=== PATIENT | male | born 1980 | race Two or more races ===

== ENCOUNTER → 2024-08-21 12:52 | Outpatient (BNVA) | payer OTHER, SELFPAY | PROVIDERS: Visit Provider Physician Assistant Medical | DX: S61.012A Laceration without foreign body of left thumb without damage to nail, initial encounter (principal); W26.0XXA Contact with knife, initial encounter | CPT/HCPCS: 12001; 99204 ==

== ENCOUNTER 2024-08-23 08:17 | Outpatient (AMB) | payer OTHER, SELFPAY ==
[2024-08-23 08:25] VITALS: BMI 34.5
--- NOTE | 2024-08-23 08:25 | MHC.OFFVIS ---
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 Seen in [facility] ED same day where he received about 6 stitches, splinted and referred to orthopedic. States currently he has numbness and tingling at tip of his thumb, limited ROM and swelling. 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 This is a work injury, DOI: 08/21/24. He says he was seen in the ED where his thumb was sutured & splinted. He was referred here by [employer]. He complains of pain as well as numbness & tingling to the tip of his thumb. He also complains of swelling & limited ROM. 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 He cut his thumb while changing a blade. He is concerned about being out of work for too long due to his injury, or surgery. 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 Review of Systems Const All systems reviewed & are unremarkable except as noted in HPI and below Physical Exam Vital Signs: BMI result Body Mass Index 34.5 Const General: cooperative, healthy appearing and no acute distress Orientation/consciousness: patient oriented x3 HEENT Head: Yes normocephalic and Yes atraumatic Eyes EOM: EOMs intact bilaterally Resp Effort & Inspection: normal respiratory effort and able to speak in complete sentences Cardio Jugular venous distension: no JVD Skin General skin exam: turgor normal Rashes: no rashes Neuro General: patient oriented x3 Extrem Other: Evaluation of Left Upper Extremity: The patient is alert, oriented, and in no acute distress Neuro: Median, Ulnar, Radial nerves motor and sensory intact and sensation is normal to the tips of all digits, except for some numbness to the tip of his thumb Vascular: Cap refill brisk ROM: He can bring his fingers closed to a fist He can weakly extend his thumb at the IP joint, but not fully Skin: He has a chevron shaped cut over the dorsal aspect of the thumb IP joint, sutured. He also showed me some pictures from the emergency department that appeared to show a laceration over the dorsal central aspect of the IP joint of the thumb, exposing the IP joint of the thumb. This appears to involve the dorsal central aspect, right where the extensor tendon passes. General: No Ecchymosis. No Erythema or evidence of infection. Psych Appearance: grossly normal Affect: normal affect Attitude: cooperative Assessment & Plan Assessment & Plan (1) Laceration of extensor tendon of left thumb at hand level: Code(s): S66.222A - Laceration of extensor muscle, fascia and tendon of left thumb at wrist and hand level, initial encounter Category: Medical Plan Assessment & Plan: 1. Left thumb extensor tendon laceration DOI: 08/21/24 This is a work-related injury I educated him about this condition I discussed operative and non-operative treatment options The patient would like to proceed with surgery He was fitted for a new thumb spica splint, to be worn until his DOS I ordered a 7-day course of PO Augmentin He was given a note for work to return on light duty, with a 2lb weight limit with his LUE, effective 08/28/24 The risks and benefits of operative treatment were discussed with the patient and the patient wishes to proceed with surgery. These risks include, but are not limited to risk of damage to blood vessels, nerves, tendons, infection, recurrence, incomplete relief of preoperative symptoms, persistent pain, possible need for further surgery and the risks associated with regional blocks and anesthesia. The plan is to take the patient to the operating room sometime on 08/24/24 for the following procedures: 1. Left thumb IP joint I&D, under general 2. Left thumb extensor tendon repair, under general All of the preoperative paperwork including the consent was reviewed today. All the patient's questions were answered. The patient understands that they will be contacted by our home care scheduler soon to schedule this procedure He denies Diabetes, blood thinners, asthma, heart, lung, kidney issues Please note that greater than 30 minutes was spent with this patient going over the history, evaluating the patient and radiographs, formulating possible treatment options, discussing them with the patient, and documenting the visit. Scribed for Bea Guerra MD by Danish Gilman, biomedical engineering technologist, on 08/23/24 at 8:45 AM, EST. Coding Level of Care Code New Pt Level 4 (77607) Diagnoses Laceration of extensor tendon of left thumb at hand level S66.222A
== END 2024-08-23 09:25 | disposition home or self-care (01) ==
LOC: HO.HOS 08:18
PROVIDERS: Visit Provider Orthopaedic Surgery
DX: S66.222A Laceration of extensor muscle, fascia and tendon of left thumb at wrist and hand level, initial encounter (principal)
CPT/HCPCS: 99204

== ENCOUNTER → 2024-08-23 08:17 | Outpatient (BNVA) | payer OTHER, SELFPAY | PROVIDERS: Visit Provider Orthopaedic Surgery | DX: S66.222A Laceration of extensor muscle, fascia and tendon of left thumb at wrist and hand level, initial encounter (principal) | CPT/HCPCS: 99202 ==

== ENCOUNTER 2024-08-24 12:04 | Day surgery (SDC) | payer OTHER, SELFPAY ==
--- NOTE | 2024-08-23 13:40 | P.CONAN_ITS ---
Documented by User: Hanny Crooks NP 08/23/24 13:41 HPI - Anesthesia Eval Consult details Narrative: 44yo M for Left Thumb Extensor Tendon Repair,a I&D [facility] Active Problems Active Problems: All Active Problems Laceration of extensor tendon of left thumb at hand level (Acute) Past Medical History Medical History (Updated 08/24/24 @ 12:28 by Sherri Calvillo RN) No pertinent past medical history Surgical History Surgical History (Updated 08/24/24 @ 12:27 by Sherri Calvillo RN) No pertinent past surgical history Social History Social History (Updated 08/23/24 @ 08:26 by SELMA Wyatt) Patient Tobacco Use Status: Current someday Tobacco user Have you been hit, kicked, punched, or otherwise hurt by someone within the past year? 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 Meds Allergies Allergy/AdvReac Type Severity Reaction Status Date / Time No Known Allergies Allergy Verified 08/23/24 08:25 Home Medications ?Medication ?Instructions ?Recorded ?Confirmed ?Last Taken ?Type No Known Home Meds 08/23/24 08/24/24 Unknown History Assessment and Plan Assessment Anesthesia Assessment: Chart Reviewed Documented by User: Abdi Landry MD 08/24/24 13:50 [facility] Past Medical History Medical History (Updated 08/24/24 @ 12:28 by Sherri Calvillo RN) No pertinent past medical history Family History Family history of problems with anesthesia: No Surgical History Surgical History (Updated 08/24/24 @ 12:27 by Sherri Calvillo RN) No pertinent past surgical history History of Problems with Anesthesia: No Social History Social History (Updated 08/23/24 @ 08:26 by SELMA Wyatt) Patient Tobacco Use Status: Current someday Tobacco user Have you been hit, kicked, punched, or otherwise hurt by someone within the past year? 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 Meds Allergies Allergy/AdvReac Type Severity Reaction Status Date / Time No Known Allergies Allergy Verified 08/23/24 08:25 Home Medications ?Medication ?Instructions ?Recorded ?Confirmed ?Last Taken ?Type No Known Home Meds 08/23/24 08/24/24 Unknown History Exam Airway Mallampati Class: II TM Dist: <=3cm Neck ROM: Full Loose/Missing/Broken Teeth: No Heart: ok Lungs: ok Assessment and Plan Assessment Anesthesia Assessment: Anesthesia Plan Discussed Final Anesthetic Review Family History of Problems with Anesthesia: No History of Problems with Anesthesia: No NPO: Yes ASA Class: II Final Preanesthetic Review: No Changes in Pt Med Stat, Meds/Allgs Chart Review ed, Consent Obtained/Reviewed and Anes Risks/Benef Reviewed Patient Risk: Intermediate Procedure Risk: Low Anesthetic Plan Anesthetic Plan: GA and Agree w/ Assess. and Plan Disposition: Standard PACU
[2024-08-24] VITALS (8 sets, daily range): BP systolic 122–153; BP diastolic 76–93; PULSE 57–87; RESP 16–20; TEMP 36.3–36.5; O2SAT 97–99; BMI 34.5; BMI 35.3
[2024-08-24] MEDS: Lactated Ringers 1,000 ML 100 ML IVCONT (12:36)
--- NOTE | 2024-08-24 14:20 | MHC.SHP ---
Pre-Procedural Eval Section A - 24 Hr Update-Section A only Date of Service: 08/24/24 The patient is an INPATIENT: No Changes since office visit: No Cold of Flu in the past 2 weeks, No New Medical Problems, No Changes in Medication and No Patient answered all questions The patient has been examined within 24 hours of the surgical procedure. The History & Physical has been completed within 30 days and I have reviewed it.: Yes Section B - Complete if H&P > 30 days Chief Complaint: Laceration of extensor muscle, fascia and tendon Allergies: Allergies Allergy/AdvReac Type Severity Reaction Status Date / Time No Known Allergies Allergy Verified 08/23/24 08:25 Plan I have reviewed the history and physical and performed a pertinent physical examination on my patient. No changes have occurred unless specified. Time Spent With Patient Time: Total time managing care of this patient today ____ minutes.
--- NOTE | 2024-08-24 14:21 | W.PM.OPN ---
Operative Note Operative Note Date of Service: 08/24/24 Narrative: Operative Note Narrative: Preop diagnosis: 1. Left dorsal thumb extensor pollicis longus tendon laceration 2. Laceration of left thumb, open IP joint Postop diagnosis: Same Procedure: 1. Left thumb EPL tendon repair 2. Left thumb I and D, and I and D of open IP joint Surgeon: Bea Guerra MD Maintenance Director: Augusto REAL Anesthesia: General Anesthesia Findings: Transverse laceration of the EPL tendon over the IP joint, 100%. Open IP joint Implants: None Tourniquet time: 13 minutes EBL: 5.0 ml Specimen: None Drains: None Complications: None Disposition: Brought to the recovery room in stable condition Plan: Follow-up in 10-14 days for wound check, suture removal . Placed in a short-arm thumb spica cast to the tip of the IP joint until 6 weeks postop Indications: The patient is a 44 year old man with left dorsal thumb laceration with an open IP joint and laceration of the EPL tendon . The risks and benefits of operative treatment, including but not limited to risk of damage to blood vessels, nerves, tendons, infection, recurrence, persistent pain or numbness, incomplete resolution of preoperative symptoms, or need for further surgery were discussed with the patient and they wished to proceed with surgery. Procedure: Once consent was obtained patient was brought back to the operating suite and placed in the operating table in a supine position. . Perioperative antibiotics and anesthesia was administered by the anesthesia team. A tourniquet was applied to the proximal aspect of the left upper extremity and the limb was prepped and draped in a standard surgical fashion. The limb was elevated exsanguinated with Esmarch bandage and the tourniquet inflated to 250 mm of mercury for a total tourniquet time of 13 minutes. The sutures were removed from the chevron-shaped laceration on the dorsal aspect of the IP joint of the patient's left thumb. We were then able to dissect down to the extensor tendon. There was 100% transverse transection of the EPL tendon over the IP joint. The IP joint was also noted to be open. The wound was copiously irrigated with normal saline. The wound edges were also sharply debrided using a 15. Blade and iris scissors. The IP joint was debrided of some hematoma and the joint copiously irrigated with normal saline using a 10 mL syringe and an Angiocath. Once satisfied with our I&D the EPL tendon was repaired using some 4-0 FiberWire using 4 core suture technique. The wound was again irrigated with normal saline. At this point the tourniquet was deflated and hemostasis obtained with a brief period of local pressure. The wound was copiously irrigated with normal saline. The skin edges were reapproximated with 5-0 nylon suture. A digital block was performed using some 1% lidocaine with epinephrine for postop pain control. A sterile dressing was applied and he was placed in a short-arm thumb spica splint holding the IP joint in extension. The patient appears to have tolerated the procedure well and with no complications. All digits were well vascularized conclusion of the case.
[2024-08-24] MEDS: ceFAZolin Sodium/Dextrose,Iso 2 GM/50 ML PIGGYBACK IV (14:25)
== END 2024-08-24 16:35 | disposition home or self-care (01) ==
PROVIDERS: Visit Provider Orthopaedic Surgery
PROC: (CPT 26418; principal; 2024-08-24 14:20)
DX: S66.222A Laceration of extensor muscle, fascia and tendon of left thumb at wrist and hand level, initial encounter (principal); S61.012A Laceration without foreign body of left thumb without damage to nail, initial encounter; R20.0 Anesthesia of skin; R20.2 Paresthesia of skin; W31.82XA Contact with other commercial machinery, initial encounter; W26.8XXA Contact with other sharp object(s), not elsewhere classified, initial encounter; Y93.89 Activity, other specified; Y92.69 Other specified industrial and construction area as the place of occurrence of the external cause; Y99.0 Civilian activity done for income or pay
CPT/HCPCS: 26418; 26080; J0690; J1100; J2003; J2004; J2250; J2405; J2704; J3010

== ENCOUNTER → 2024-08-24 12:04 | Outpatient (BNV) | payer OTHER, SELFPAY | PROVIDERS: Visit Provider Orthopaedic Surgery | DX: S66.222A Laceration of extensor muscle, fascia and tendon of left thumb at wrist and hand level, initial encounter (principal) | CPT/HCPCS: 11012; 26418 ==

== ENCOUNTER 2024-09-06 08:01 | Outpatient (AMB) | payer OTHER, SELFPAY ==
--- NOTE | 2024-09-06 08:30 | MHC.OFFVIS ---
Intake Visit Reasons: PO LT thumb extensor tendon repair 08/24/24 AR Intake Note: Angel 44 yr old male presents today for his P/O visit for his left thumb extensor tendon repair 08/24/[address] Guerra. States his splint got wet and he had to remive it. Allergies No Known Allergies Allergy (Verified 09/06/24 08:41) HPI HPI PO LT thumb extensor tendon repair 08/24/24 AR: Details: Angel is a 44 year old right hand dominant man who is status post left thumb I and D, I and D of the open IP joint, and repair of the EPL tendon. Date of surgery 08/24/2024. Unfortunately, he is here today after having taken off his operative thumb spica splint and dressing about a week ago. He says his dressing got wet while doing the dishes. He has not been wearing a splint since that time. This is a work injury, DOI: 08/21/24. 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 He cut his thumb while changing a blade. He is concerned about being out of work for too long due to his injury, or surgery. He has reportedly returned to work and has been ?working hard?. He has 4 children ages 4, 6, 7 and 11, and unfortunately he in his girlfriend are not getting along and so he feels he needs to do the dishes and take care of the kids on his own. 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 The wound of the dorsum of his thumb appears to be healing well with no erythema drainage or evidence of infection. His thumb is held in some flexion, perhaps 20 degrees. He can actively extend the thumb, which is fortunate. Sensation intact to the tip of the thumb Assessment & Plan Assessment & Plan (1) Laceration of extensor tendon of left thumb at hand level: Code(s): S66.222A - Laceration of extensor muscle, fascia and tendon of left thumb at wrist and hand level, initial encounter Category: Medical Plan Assessment and plan: 1. Left thumb extensor tendon laceration status post repair 2. Left thumb open IP joint status post I and D Date of surgery 08/24/2024 DOI: 08/21/24 This is a work-related injury Again please note that 1 week after surgery the patient removed his postoperative dressing and stopped wearing the operative thumb spica splint. At this point I believe the EPL tendon repair is likely still intact, fortunately. I educated the patient about the importance of keeping the thumb splinted while the tendon is healing. We placed him in a short-arm thumb spica cast. He is going to do the best he can to keep it dry. He knows that if it gets wet he should contact us and not just leave it wet. Ideally, we will discontinue the cast in 4 weeks. At this point we will take whatever time protecting this tendon repair that we can get. Coding Level of Care Code Global (54474) Diagnoses Laceration of extensor tendon of left thumb at hand level S66.222A
== END 2024-09-06 10:23 | disposition home or self-care (01) ==
LOC: HO.HOS 08:02
PROVIDERS: Visit Provider Orthopaedic Surgery
DX: S66.222A Laceration of extensor muscle, fascia and tendon of left thumb at wrist and hand level, initial encounter (principal)
CPT/HCPCS: 99024

== ENCOUNTER → 2024-09-06 08:01 | Outpatient (BNVA) | payer OTHER, SELFPAY | PROVIDERS: Visit Provider Orthopaedic Surgery | DX: S66.222A Laceration of extensor muscle, fascia and tendon of left thumb at wrist and hand level, initial encounter (principal); W31.9XXA Contact with unspecified machinery, initial encounter; Y93.89 Activity, other specified; Y92.63 Factory as the place of occurrence of the external cause; Y99.0 Civilian activity done for income or pay | CPT/HCPCS: 99212 ==

== ENCOUNTER 2024-09-29 08:17 | Outpatient (AMB) | payer OTHER, SELFPAY ==
[2024-09-29 08:25] VITALS: BMI 34.5
--- NOTE | 2024-09-29 08:25 | A.OFFVIS_ITS ---
Vital Signs 09/29/24 08:25 Height 5 ft 7 in Weight 220 lb BMI 34.5 Intake Visit Reasons: PO LT thumb extensor tendon repair 08/24/24 AR Intake Note: Angel is a 44 year old right hand dominant male who presents today for a post operative visit status post left thumb EPL tendon repair and left thumb I&D, and I&D of open IP joint DOS: 09/06/[address] Bea Guerra. Cast removed in office. States he is doing well however he is limited ROM in his thumb IP. Allergies No Known Allergies Allergy (Verified 09/29/24 08:27) HPI HPI PO LT thumb extensor tendon repair 08/24/24 AR: Details: Angel is a 44 year old right hand dominant male who presents today for a post operative visit status post left thumb EPL tendon repair and left thumb I&D, and I&D of open IP joint DOS: 09/06/[address] Bea Guerra. Cast removed in office. States he is doing well however he is limited ROM in his thumb IP. 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 Neuro: Normal sensation of the tips of all digits of the left hand at this time Vascular: Cap refill brisk Pain: No tenderness to palpation around incision site over dorsal IP joint of the left thumb ROM: Patient is able to flex and extend the index, middle, ring, small fingers of the left hand fully and without difficulty Skin: Well-healed laceration/incision noted over the dorsal IP joint of the left thumb No lacerations or abrasions. General: No ecchymosis, erythema, or evidence of infection. Psych: Appears grossly normal Affect normal Attitude cooperative Office Procedures Casting/Splints 09909-Dwoj/Wrist Cast Application Procedure code (CPT) selection complete Assessment & Plan Assessment & Plan (1) Laceration of extensor tendon of left thumb at hand level: Code(s): S66.222A - Laceration of extensor muscle, fascia and tendon of left thumb at wrist and hand level, initial encounter Category: Medical Plan Status post extensor tendon repair of left thumb DOS 08/24/2024 Patient is educated about this condition Patient is educated typical recovery course At this time, due to the fact that the patient is slightly less than 5 weeks removed from injury and surgery, he is placed back into a short-arm thumb spica cast Patient is educated on proper cast care and precautions Follow-up in 10-14 days, anticipate cast removal at that time and OT referral, sooner with any acute concerns Coding Level of Care Code Global (17083) Diagnoses Laceration of extensor tendon of left thumb at hand level S66.222A CPT Codes Casting - CPT: 16066-Nonm/Wrist Cast Application ([id number])
== END 2024-09-29 08:58 | disposition home or self-care (01) ==
LOC: HO.HOS 08:18
DX: S66.222A Laceration of extensor muscle, fascia and tendon of left thumb at wrist and hand level, initial encounter (principal)
CPT/HCPCS: 29085; 99024

== ENCOUNTER → 2024-09-29 08:17 | Outpatient (BNVA) | payer OTHER, SELFPAY | DX: Z47.89 Encounter for other orthopedic aftercare (principal); S66.222A Laceration of extensor muscle, fascia and tendon of left thumb at wrist and hand level, initial encounter; W23.0XXA Caught, crushed, jammed, or pinched between moving objects, initial encounter | CPT/HCPCS: 29085; 99212 ==

== ENCOUNTER 2024-10-10 08:48 | Outpatient (AMB) | payer OTHER, SELFPAY ==
[2024-10-10 08:56] VITALS: BMI 34.5
--- NOTE | 2024-10-10 08:56 | MHC.OFFVIS ---
Vital Signs 10/10/24 08:56 Height 5 ft 7 in Weight 220 lb BMI 34.5 Intake Visit Reasons: PO LT thumb extensor tendon repair 08/24/24 AR Intake Note: Angel is a 44 year old right hand dominant male who presents today for a post operative visit status post left thumb EPL tendon repair and left thumb I&D, and I&D of open IP joint DOS: 09/06/[address] Bea Guerra. At his last visit he is placed back into a short-arm thumb spica cast. States he has no pain or no complains. Allergies No Known Allergies Allergy (Verified 10/10/24 08:57) HPI HPI PO LT thumb extensor tendon repair 08/24/24 AR: Details: Patient is a 44-year-old male who presents to the office for postoperative evaluation status post left thumb extensor tendon repair. Patient states he is feeling very well, has no ongoing pain or concerns with regards to his left thumb. Patient states he is eager to start OT in order to start getting the range of motion of his left thumb back. No other acute complaints or concerns at this time. 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 Neuro: Normal sensation of the tips of all digits of the left hand at this time Vascular: Cap refill brisk Pain: No tenderness to palpation around incision site over dorsal IP joint of the left thumb ROM: Patient is able to flex and extend the index, middle, ring, small fingers of the left hand fully and without difficulty Skin: Well-healed laceration/incision noted over the dorsal IP joint of the left thumb No lacerations or abrasions. General: No ecchymosis, erythema, or evidence of infection. Psych: Appears grossly normal Affect normal Attitude cooperative Assessment & Plan Assessment & Plan (1) Laceration of extensor tendon of left thumb at hand level: Code(s): S66.222A - Laceration of extensor muscle, fascia and tendon of left thumb at wrist and hand level, initial encounter Category: Medical Plan Status post extensor tendon repair of left thumb DOS 08/24/2024 Patient is educated about this condition Patient is educated typical recovery course Patient referred to OT to begin gentle range of motion of the left thumb as well as to be fit for a custom thermal molded splint Patient is provided with a Velcro thumb spica splint to wear until he is seen by OT Patient is amenable to this plan Follow-up in 4-6 weeks for reassessment, sooner with any acute concerns Orders: Orders OT Evaluation and Treatment Today S66.222A - Laceration of extensor muscle, fascia and tendon of left thumb at wrist and hand level, initial encounter Coding Level of Care Code Global (52363) Diagnoses Laceration of extensor tendon of left thumb at hand level S66.222A
== END 2024-10-10 09:09 | disposition home or self-care (01) ==
LOC: HO.HOS 08:49
DX: S66.222A Laceration of extensor muscle, fascia and tendon of left thumb at wrist and hand level, initial encounter (principal)
CPT/HCPCS: 99024

== ENCOUNTER → 2024-10-10 08:48 | Outpatient (BNVA) | payer OTHER, SELFPAY | DX: S66.222A Laceration of extensor muscle, fascia and tendon of left thumb at wrist and hand level, initial encounter (principal); Z98.890 Other specified postprocedural states | CPT/HCPCS: 99212 ==

== ENCOUNTER 2024-11-17 11:43 | Outpatient (AMB) | payer OTHER, SELFPAY ==
--- NOTE | 2024-11-17 11:47 | A.OFFVIS_ITS ---
Intake Visit Reasons: PO: Lt thumb extensor repair DOS 09/06/24 Intake Note: Angel is a 44 year old right hand dominant male who presents today for ROM check status post left thumb extensor tendon repair, DOS: 09/06/[address] Guerra. At his last post operative visit he was referred to occupational therapy to begin gentle range of motion and to be fit for a custom thermal molded splint. Patient was provided with a velcro thumb spica brace to wear until seen by occupational therapy. Reports he has been wearing the brace at home but barely and has not met with occupational therapy. He expresses he feels his thumb is healing properly. Denies numbness and tingling. Denies pain. Needs work note for today's visit. Allergies No Known Allergies Allergy (Verified 11/17/24 11:50) Do you need a note to return to daycare/school/sports/work: Yes Return to daycare/school/sports/work/other note: work HPI HPI PO: Lt thumb extensor repair DOS 09/06/24: Details: Angel is a 44 year old right hand dominant male who presents today for ROM check status post left thumb extensor tendon repair, DOS: 09/06/[address] Guerra. At his last post operative visit he was referred to occupational therapy to begin gentle range of motion and to be fit for a custom thermal molded splint. Patient was provided with a velcro thumb spica brace to wear until seen by occupational therapy. Reports he has been wearing the brace at home but barely and has not met with occupational therapy. He expresses he feels his thumb is healing properly. Denies numbness and tingling. Denies pain. Needs work note for today's visit. 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 Neuro: Normal sensation of the tips of all digits of the left hand at this time Vascular: Cap refill brisk Pain: No tenderness to palpation around incision site over dorsal IP joint of the left thumb ROM: Patient is able to flex and extend the index, middle, ring, small fingers of the left hand fully and without difficulty Range of motion of the left thumb has improved drastically since previous evaluation, range of motion of the left thumb is full and intact Skin: Well-healed laceration/incision noted over the dorsal IP joint of the left thumb No lacerations or abrasions. General: No ecchymosis, erythema, or evidence of infection. Psych: Appears grossly normal Affect normal Attitude cooperative Assessment & Plan Assessment & Plan (1) Laceration of extensor tendon of left thumb at hand level: Onset Date: ~09/06/24 Code(s): S66.222A - Laceration of extensor muscle, fascia and tendon of left thumb at wrist and hand level, initial encounter Category: Medical Plan Status post extensor tendon repair of left thumb DOS 08/24/2024 Patient is educated about this condition Patient is educated typical recovery course Continue OT for range of motion of the left thumb Where thermal molded splint with high-risk daytime activities Patient is amenable to this plan Follow-up in 6-8 weeks for reassessment, sooner with any acute concerns Coding Level of Care Code Global (68488) Diagnoses Laceration of extensor tendon of left thumb at hand level S66.222A
== END 2024-11-17 12:44 | disposition home or self-care (01) ==
DX: S66.222A Laceration of extensor muscle, fascia and tendon of left thumb at wrist and hand level, initial encounter (principal)
CPT/HCPCS: 99024

== ENCOUNTER → 2024-11-17 11:43 | Outpatient (BNVA) | payer OTHER, SELFPAY | DX: S66.222A Laceration of extensor muscle, fascia and tendon of left thumb at wrist and hand level, initial encounter (principal) | CPT/HCPCS: 99212 ==

== ENCOUNTER 2024-12-20 14:00 | Outpatient (AMB) | payer OTHER, SELFPAY ==
--- NOTE | 2024-12-20 14:08 | A.OFFVIS_ITS ---
Vital Signs 12/20/24 14:09 Height 5 ft 7 in Weight 220 lb BMI 34.5 Intake Visit Reasons: OV: Lt thumb extensor tendon repair 08/24/24 AR Intake Note: Angel is a 44 year old right hand dominant male who presents today for ROM check status post left thumb extensor tendon repair, DOS: 09/06/[address] Guerra. At his last visit he was advised to continue OT and to wear his thermal molded splint with high-risk daytime activities. States he is doing well, no pain. Allergies No Known Allergies Allergy (Verified 12/20/24 14:36) HPI HPI OV: Lt thumb extensor tendon repair 08/24/24 AR: Details: Angel is a 44 year old right hand dominant man who presents for a ROM check of his left thumb, S/P EPL tendon repair & IP joint I&D, DOS: 08/24/24. He says he is doing well and denies any pain. 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 He cut his thumb while changing a blade, DOI: 08/21/24. He has been released to work on full duty, however he recently developed a hernia which he had corrected ~2 weeks ago, and has been again off of work since his hernia. 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 Neuro: Median, Ulnar, Radial nerves motor and sensory intact and sensation is normal to the tips of all digits Vascular: Cap refill brisk ROM: He can make a fist and extend all his digits Strong active & full extension at the thumb IP joint He can flex his thumb to the base of the small finger Psych Appearance: grossly normal Affect: normal affect Attitude: cooperative Assessment & Plan Assessment & Plan (1) Laceration of extensor tendon of left thumb at hand level: Onset Date: ~09/06/24 Code(s): S66.222A - Laceration of extensor muscle, fascia and tendon of left thumb at wrist and hand level, initial encounter Category: Medical Plan Assessment & Plan: 1. Left thumb EPL tendon laceration, S/P repair 2. 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 He was given a note for work to return to full duty without restrictions, effective 12/20/24. He says he is waiting for a note from work connections as well. He can follow up prn Scribed for Bea Guerra MD by Danish Gilman, medical billing representative, on 12/20/24 at 3:00 PM, EST. Coding Level of Care Code Est Pt Level 3 (65858) Diagnoses Laceration of extensor tendon of left thumb at hand level S66.222A
[2024-12-20 14:09] VITALS: BMI 34.5
== END 2024-12-20 15:18 | disposition home or self-care (01) ==
LOC: HO.HOS 14:00
PROVIDERS: Visit Provider Orthopaedic Surgery
DX: S66.222A Laceration of extensor muscle, fascia and tendon of left thumb at wrist and hand level, initial encounter (principal)
CPT/HCPCS: 99213

== ENCOUNTER → 2024-12-20 14:00 | Outpatient (BNVA) | payer OTHER, SELFPAY | PROVIDERS: Visit Provider Orthopaedic Surgery | DX: S66.222D Laceration of extensor muscle, fascia and tendon of left thumb at wrist and hand level, subsequent encounter (principal) | CPT/HCPCS: 99212 ==